=== PATIENT | male | born 1985 | race Two or more races ===

== ENCOUNTER 2017-10-04 02:58 | Emergency (ER) | payer MEDICAID ==
[~2017-10-04] VITALS: Ht 165.1 cm; Wt 68.0 kg
[2017-10-04] MEDS ORDERED: KETOROLAC 60MG/2ML VIAL IM ONE (05:00)
[2017-10-04 05:40] VITALS: BP 132/88
== END 2017-10-04 05:45 | disposition home or self-care (01) ==
LOC: ER 02:58
DX: M25.561 Pain in right knee (principal); Z88.8 Allergy status to other drugs, medicaments and biological substances
CPT/HCPCS: 73562; 96372; 99284; J1885; Z7610